=== PATIENT | male | born 1960 | race Caucasian/White ===

== ENCOUNTER → 2023-10-13 13:42 | Outpatient (REF) | payer OTHER, SELFPAY ==
[2023-10-13 14:09] LABS: % Basophils 1.4 % (0-2); % Eosinophils 5.2 % (0-6); % Immature Granulocytes 0.2 % (0-0.5); % Monocytes 10.2 % (1.7-9.3); Absolute Basophils 0.1 10^3/uL (0-0.2); Absolute Eosinophils 0.3 10^3/uL (0-0.7); Absolute Lymphocytes 1.9 10^3/uL (1.2-3.4); Absolute Monocytes 0.7 10^3/uL (0.1-0.6); Absolute Neutrophils 3.5 10^3/uL (1.4-6.5); Hemoglobin 15.4 g/dL (13.0-18.0); Mean Corpuscular Hgb 32.7 pg (27.0-31.0); Mean Corpuscular Volume 93.4 fL (80.0-94.0); Mean Platelet Volume 9.6 fL (7.4-10.4); Nucleated Red Blood Cells % 0 % (-); Platelet Count 241 10^3/uL (130-400); Red Blood Cell Count 4.71 10^6/uL (4.70-6.10); Red Cell Dist. Width 11.9 % (11.5-14.5); White Blood Cell Count 6.4 10^3/uL (4.8-10.8)
[2023-10-13 14:43] LABS: ALT (SGPT) 22 U/L (0-50); AST (SGOT) 20 U/L (17-59); Albumin 3.8 g/dl (3.5-5.0); Alkaline Phosphatase 63 U/L (38-126); Blood Urea Nitrogen 26 mg/dl (9-20); Calcium 9.4 mg/dl (8.4-10.2); Carbon Dioxide 30 mmol/L (22-30); Chloride 103 mmol/L (98-107); Glucose 105 mg/dl (70-99); Potassium 4.1 mmol/L (3.5-5.1); Sodium 141 mmol/L (135-145); Total Bilirubin 0.7 mg/dl (0.2-1.3); Total Protein 6.5 g/dl (6.3-8.2); eGFR > 60.00
== END ==
LOC: REG 13:42
PROVIDERS: ATTENDING PHYSICIAN Nurse Practitioner Adult Health; FAMILY PHYSICIAN Internal Medicine
DX: I82.401 Acute embolism and thrombosis of unspecified deep veins of right lower extremity (principal)
CPT/HCPCS: 36415; 80053; 85025

== ENCOUNTER → 2023-10-18 15:35 | Outpatient (REF) | payer OTHER, SELFPAY | LOC: RAD 15:35 | PROVIDERS: ATTENDING PHYSICIAN Nurse Practitioner Adult Health | DX: I82.401 Acute embolism and thrombosis of unspecified deep veins of right lower extremity (principal) | CPT/HCPCS: 93971 ==

== ENCOUNTER → 2023-10-26 11:32 | Outpatient (REF) | payer OTHER, SELFPAY ==
[2023-10-26 12:06] LABS: % Basophils 1.2 % (0-2); % Eosinophils 4.6 % (0-6); % Immature Granulocytes 0.3 % (0-0.5); % Lymphocytes 44.6 % (20.5-51.1); % Monocytes 8.7 % (1.7-9.3); % Neutrophils 40.6 % (42.2-75.2); Absolute Basophils 0.1 10^3/uL (0-0.2); Absolute Eosinophils 0.3 10^3/uL (0-0.7); Absolute Lymphocytes 2.9 10^3/uL (1.2-3.4); Absolute Monocytes 0.6 10^3/uL (0.1-0.6); Absolute Neutrophils 2.7 10^3/uL (1.4-6.5); Hematocrit 43.9 % (39.0-52.0); Hemoglobin 15.7 g/dL (13.0-18.0); Mean Corp Hgb Conc. 35.8 g/dL (33.0-37.0); Mean Corpuscular Hgb 32.7 pg (27.0-31.0); Mean Corpuscular Volume 91.5 fL (80.0-94.0); Mean Platelet Volume 9.6 fL (7.4-10.4); Nucleated Red Blood Cells % 0 % (-); Platelet Count 253 10^3/uL (130-400); Red Cell Dist. Width 11.8 % (11.5-14.5); White Blood Cell Count 6.5 10^3/uL (4.8-10.8)
== END ==
LOC: REG 11:32
PROVIDERS: ATTENDING PHYSICIAN Internal Medicine Hematology & Oncology; FAMILY PHYSICIAN Internal Medicine
DX: I82.401 Acute embolism and thrombosis of unspecified deep veins of right lower extremity (principal)
CPT/HCPCS: 36415; 85025